=== PATIENT | male | born 1960 | race Caucasian/White ===

== ENCOUNTER 2018-06-23 09:28 | Emergency (ER) | payer OTHER ==
[~2018-06-23] VITALS: Ht 180.3 cm; Wt 113.4 kg
[2018-06-23] MEDS ORDERED: LISINOPRIL10 MG PO (09:36)
[2018-06-23] MEDS ORDERED: ZOCOR 10 MG TAB10 M1 PO (09:36)
[2018-06-23] MEDS ORDERED: XANAX 0.25 MG0.25 MG PO (09:39)
[2018-06-23 10:05] LABS: ABSOLUTE EOSINOPHILS 0.1 thou/uL (0.0-0.7); ABSOLUTE LYMPHOCYTES 1.2 thou/uL (0.8-5.3); ABSOLUTE MONOCYTES 0.3 thou/uL (0.0-1.2); BASOPHILS 0.9 %; EOSINOPHILS 2.6 %; HEMATOCRIT 42.1 % (42.0-52.0); HEMOGLOBIN 14.7 gm/dL (14.0-18.0); LYMPHOCYTES 25.8 %; MCH 30.8 pg (26.0-34.0); MCHC 34.9 g/dL (28.0-37.0); MCV 88.2 fL (80.0-100.0); MONOCYTES 7.2 %; MPV 7.2 fl. (7.2-11.1); NUCLEATED RBCS 0 /100WBC; PLATELET COUNT* 217 thou/uL (150-400); POLYS 63.5 %; RBC 4.78 mil/uL (4.50-6.00); WBC 4.7 thou/uL (4.0-11.0)
[2018-06-23 10:22] LABS: ANION GAP 8 mmol/L (7-16); BUN 15 mg/dL (7-18); CHLORIDE 107 mmol/L (98-107); CO2 25 mmol/L (21-32); CREATININE 1.1 mg/dL (0.6-1.3); GLUCOSE 104 mg/dL (70-99); POTASSIUM 4.1 mmol/L (3.5-5.1); SODIUM 140 mmol/L (136-145); TROPONIN-I LEVEL <0.06 ng/mL (<0.06)
[2018-06-23 10:26] LABS: ALBUMIN 3.8 g/dL (3.4-5.0); ALKALINE PHOSPHATASE 55 U/L (46-116); CK-MB MASS 1.8 ng/mL (<0.5-3.6); LIPASE 178 U/L (73-393); MAGNESIUM 1.9 mg/dL (1.8-2.4); NT-PRO BRAIN NAT PEPTIDE 72 pg/mL (<300); SGOT 36 U/L (15-37); SGPT 65 U/L (30-65); TOTAL BILIRUBIN 0.7 mg/dL (<0.1-1.0); TOTAL PROTEIN 7.1 g/dL (6.4-8.2)
[2018-06-23 11:00] LABS: APTT 40.2 Seconds (25.0-31.3); INR 1.2; PROTIME 11.8 Seconds (9.20-11.50)
[2018-06-23 12:21] VITALS: BP 137/83
--- NOTE | 2018-06-23 16:10 | EKG ---
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 : 1960 Requested By: Chi Mcnally Order Number: [id number] MD: Berny Porter Measurements Intervals [place] Rate: 75 P: 36 W[place]: 156 QRS: 8 QRSD: 92 T: 11 QT: 391 QTc: 437 Interpretive Statements Sinus rhythm Inferior infarct, old possible Compared to ECG 05/11/2007 07:54:38 Myocardial infarct finding now present Sinus bradycardia no longer present T-wave abnormality no longer present Electronically Signed On 06-23-2018 16:10:22 DOPE MIXER by Berny Porter [email or web address] <ELECTRONICALLY SIGNED> By: Berny Porter MD, [facility] 06/23/18 1610 0934 [id number] Berny Porter MD, [facility] /EPI
--- NOTE | 2018-06-23 16:11 | EKG ---
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 : 1960 Requested By: Chi Mcnally Order Number: [id number] MD: Berny Porter Measurements Intervals [place] Rate: 59 P: 40 NC: 169 QRS: 6 QRSD: 96 T: -1 QT: 436 QTc: 432 Interpretive Statements Sinus rhythm Low voltage, precordial leads Borderline T abnormalities, inferior leads Compared to ECG 05/11/2007 07:54:38 Low QRS voltage now present Sinus bradycardia no longer present T-wave abnormality still present Electronically Signed On 06-23-2018 16:11:14 HEART COORDINATOR by Berny Porter [email or web address] <ELECTRONICALLY SIGNED> By: Berny Porter MD, [facility] 06/23/18 1611 1137 1137 Berny Porter MD, [facility] /EPI
== END 2018-06-23 12:21 | disposition home or self-care (01) ==
LOC: M.ERS 09:28
PROVIDERS: Family Medicine
DX: R07.89 Other chest pain (principal); K21.9 Gastro-esophageal reflux disease without esophagitis; I48.91 Unspecified atrial fibrillation; F41.9 Anxiety disorder, unspecified

== ENCOUNTER 2019-08-11 18:02 | Emergency (ER) | payer BC ==
[~2019-08-11] VITALS: Ht 180.3 cm; Wt 108.0 kg
[~2019-08-11 18:02] MED LIST: LISINOPRIL10 MG PO; XANAX 0.25 MG0.25 MG PO; ZOCOR 10 MG TAB10 M1 PO
[2019-08-11] MEDS ORDERED: XARELTO10 M1 PO (18:14)
[2019-08-11] MEDS ORDERED: TYLENOL WITH CO1 TA1 PO (18:24)
[2019-08-11] MEDS ORDERED: KEFLEX500 M1 PO (18:24)
[2019-08-11 18:49] VITALS: BP 165/91
== END 2019-08-11 18:50 | disposition home or self-care (01) ==
LOC: M.ERS 18:02
DX: S61.211A Laceration without foreign body of left index finger without damage to nail, initial encounter (principal); I10 Essential (primary) hypertension; I48.91 Unspecified atrial fibrillation; E78.5 Hyperlipidemia, unspecified; K21.9 Gastro-esophageal reflux disease without esophagitis; F41.9 Anxiety disorder, unspecified; Z87.891 Personal history of nicotine dependence; W26.8XXA Contact with other sharp object(s), not elsewhere classified, initial encounter; Y93.89 Activity, other specified; Y92.89 Other specified places as the place of occurrence of the external cause; Y99.8 Other external cause status